=== PATIENT | male | born 1960 | race Caucasian/White ===

== ENCOUNTER 2017-03-25 08:15 | Emergency (ER) | payer BC ==
--- NOTE | 2017-03-25 08:30 | PDOC ---
Lower Extremity Injury HPI - General Chief Complaint: Lower Extremity Problem/Injury Stated Complaint: cut left thigh with chainsaw Date Seen by Provider: 03/25/17 Time Seen by Provider: 08:26 Source: POSITIVE: Patient Exam Limitations: POSITIVE: No limitations Nurse's Notes Reviewed & Considered: Yes - History of Present Illness Initial Comments: Very pleasant 56-year-old male with a chain saw injury to his left thigh. Patient was in his normal state of health this morning, he was running a chain saw when he injured his left leg. This injury appears to be laceration through the skin and into the subcutaneous tissues. Bleeding is controlled. He denies any other injuries. He denies any headache, sore throat, chest pain or shortness of breath, nausea vomiting or diarrhea, abdominal pain, hematuria or dysuria, no rashes. Have you received a tetanus shot in the past 10 years?: No Body Location Affected: REPORTS: Lower Extremity (L) Timing: REPORTS: Abrupt Duration: 1/2 hour Severity: Moderate Quality: REPORTS: "Pain" Location at Time of Onset: REPORTS: Work Context of Injury: REPORTS: Other (Chainsaw laceration) Location of Injury: REPORTS: Thigh (L) Modifying Factors: improves with: Movement Any Prior Injuries Related to Current Complaint?: No - Patient Home Medications Home Medications: Home Medications NK [No Home Medications Reported] 03/25/17 - Patient Allergies Allergies/Adverse Reactions: Allergies Allergy/AdvReac Type Severity Reaction Status Date / Time No Known Allergies Allergy Verified 03/25/17 08:25 ROS [place]: REPORTS: Denies Symptoms Cardiovascular: REPORTS: Denies Cardiac Symptoms Respiratory: REPORTS: Denies Resp Symptoms Neurological: REPORTS: Denies Neuro Symptoms Gastrointestinal: REPORTS: Denies GI Symptoms Endocrine: REPORTS: Denies Symptoms Musculoskeletal: REPORTS: Denies MS Symptoms Genitourinary: REPORTS: Denies Symptoms Eyes: REPORTS: Denies Symptoms ENT: REPORTS: Denies Symptoms Skin: REPORTS: Other (Chainsaw laceration left thigh.) Lympathic: REPORTS: Denies Lympathic Symptoms Immunologic: POSITIVE: Denies Symptoms Psychiatric: POSITIVE: Denies Psych Symptoms Lower Ext Complaint Exam - General Appearance General Appearance: POSITIVE: Alert, Cooperative, No Acute Distress - Extremities Lower Extremity: POSITIVE: Normal ROM, Normal Color, No Joint Swelling, No Evidence of Ischemia, Soft Tissue Tenderness, Other (7 cm laceration to anterior left thigh. There is no involvement of underlying musculature or tendons or ligaments.) Gait: POSITIVE: Normal Neurovascular/Tendon: POSITIVE: Sensation Normal, Motor Normal, No Vascular Compromise Skin: POSITIVE: Warm, Dry, Laceration (7 cm laceration into the subcutaneous tissues left thigh.) Procedures - Laceration/Wound Repair Did patient have a laceration repair: Yes Site of Laceration/Wound: Left anterior thigh. Wound Length (cm): 7 Wound's Depth, Shape: Into subcutaneous tissue Time of Suture Placement:: 09:20 Distal CMS: Yes Skin Prep: Shur-Clens Local Anesthesia Used - Indicate Amt Used in Comment: Lidocaine 1% with Epinephrine: Yes Irrigated w/ Saline (mL): 250 Wound Explored: No foreign body removed Wound Debrided: Moderate Wound Repaired With: Sutures multilayer Suture Size/Type: 3:0, Prolene Number of Sutures: 8 Layer Closure?: Yes Deep Layer Suture Size/Type: 5:0 Number Deep Layer Sutures: 1 Drain Placement: No Sterile Dressing Applied?: Yes Splint Applied?: No Sling Applied?: No Procedure Note:: After informed verbal consent, patient had his wound infiltrated with 1% lidocaine with epinephrine. Wound was then prepped with Shur-Clens and scrubbed. It was irrigated with 250 mL of normal saline. The wound margins were freshened up and debrided. Using horizontal mattress sutures 3 interrupted horizontal sutures using 3-0 Prolene were placed to buttress the skin edges. Then 5 interrupted 3-0 Prolene's were utilized to close the skin edges. Wound was then bandaged. Patient received instructions in wound care, Keflex by mouth, [place] by mouth, prescriptions for Keflex, instructions for Tylenol and ibuprofen. He is to return tomorrow for wound reevaluation, and to return in 10 days for suture removal. Lower Ext Complaint Progress - Patient's Progress Pain Medication Addressed: POSITIVE: Yes Re-Examine Time:: 09:23 Status: POSITIVE: Improved MDM / ED Course: Patient was evaluated, tetanus update and Keflex were supplied. Wound was reapproximated with suture placement. 4 procedure note please see dictation above. Assessment: Laceration of skin into subcutaneous tissue secondary to chainsaw accident. Plan: Discharge home wound care and oral antibiotics, return in 10 days for suture removal. He is to return tomorrow for wound reevaluation. - Consult Counseled: POSITIVE: Patient, Family, RE: Lab Results, RE: Radiology Results, RE : DX, RE: Need for F/U Patient Care Time - Estimated PCT Patient Care Time (In Minutes): 45 Vital Signs - Recent Vital Signs Vital Signs: Vital Signs (Last 8 hours) Temp Pulse Resp BP Pulse Ox 03/25/17 08:29 96.7 F L 100 16 165/116 92 - VS Reviewed Vital Signs Reviewed: Yes Discharge Clinical Impression: Laceration Discharge Disposition: Discharged to Home Condition: Good Patient Instructions Given at Discharge: Laceration (ED)
[2017-03-25] MEDS ORDERED: LIDOCAINE HCL 1%/EPI 1:100,000 - 20 ML VIAL ONE (08:49)
[2017-03-25 08:55] VITALS: RESP 16; TEMP 96.7
[2017-03-25] MEDS: DIPH,PERTUSS,TET(ADACEL) VAC/PF 0.5 ML (Tdap) IM ONE (08:57)
[2017-03-25] MEDS: CEPHALEXIN 500 MG CAPSULE PO ONE (08:58)
[2017-03-25] MEDS: HYDROcodone-APAP 5 MG -325 MG TABLET PO ONE (08:59)
[2017-03-25] MEDS: LIDOCAINE HCL 1%/EPI 1:100,000 - 20 ML VIAL SUBCUT ONE (09:00)
== END 2017-03-25 09:30 | disposition home or self-care (01) ==
LOC: ER 08:15
DX: S71.112A Laceration without foreign body, left thigh, initial encounter (principal); W29.3XXA Contact with powered garden and outdoor hand tools and machinery, initial encounter; Y99.0 Civilian activity done for income or pay
CPT/HCPCS: 12032; 90471; 90715; 99283